=== PATIENT | male | born 1955 ===

== ENCOUNTER → 2023-04-18 15:26 | Outpatient (CLI) | payer OTHER, SELFPAY ==
--- NOTE | 2023-04-18 | DI.RAD.S_ITS ---
PROCEDURE: XR SHOULDER LT MIN 2V INDICATIONS: INJURY TECHNIQUE: 3 views of the shoulder were acquired. COMPARISON: None. FINDINGS: Bones: No fractures or dislocations. No suspicious bony lesions. Visualized ribs appear intact. AC joint osteoarthritic changes Soft tissues: No suspicious soft tissue calcifications. IMPRESSION: AC joint osteoarthritic changes. No fracture. Approved by: Juan Jose Canchola M.D. on 04/18/2023 at 18:25
== END ==
PROVIDERS: Referring Provider Family Medicine; Visit Provider Family Medicine
DX: S46.012A Strain of muscle(s) and tendon(s) of the rotator cuff of left shoulder, initial encounter (principal); X58.XXXA Exposure to other specified factors, initial encounter
CPT/HCPCS: 73030